=== PATIENT | female | born 1955 | race Caucasian/White ===

== ENCOUNTER 2019-02-24 10:49 | Observation (INO) | payer BC ==
[2019-02-24] MEDS ORDERED: NS 0.9% 1000 ML** 1,000 ML IV ONE (11:05)
--- NOTE | 2019-02-24 11:07 | ED ---
Neurological HPI - HPI Summary HPI Summary: 64 year old F presenting to [facility] accompanied with djhgss-lj-ljj and mother with a chief complaint of sudden onset of neurological symptoms since 09:00 this morning. The patient rates the pain 0/10 in severity. Symptoms aggravated by nothing. Symptoms alleviated by nothing. Patient reports aphasia and slurred speech that she noticed beginning at 09:00 this morning and that have since resolved. Patient complains of bilateral leg heaviness and bilateral leg fatigue , especially when standing. Patient states that symptoms began at 09:00 because after she and her family ate breakfast at 08:30, patient sat on the couch with her nephew. Patient felt sleepy and wanted to take a nap. As she got up to take a nap, she noticed that both her legs felt weak. Patient states that she and her family had plans to leave their house at 09:30 so she believes symptoms started closer to 09:00. Per hnudfs-ws-lui, patient told her brother that her jaw felt thick. Her brother noticed that she couldn't form words well per sister -in-law. Per hncyik-oh-pvs, she told her bbyxkr-us-zre that her legs felt heavy. Her cjdxfk-jk-nmf and mother brought her to the ED. Last known normal was 08:30 this morning. Nurse Billie reports that patient's father's was yesterday. Ledy diehl called at 10:59. Met patient at bedside at 10:59. Patient to CT at 11: 03. Preliminary NIH 0. Met patient in Room 9 at 11:24. She states that she is taking Wellbutrin XL 300 mg once a day, Crestor 10 mg once in the morning which she took today, Seroquel 50 mg once at night, 3 vitamin D tablets, and 1 multivitamin. Patient has hx hypercholesterolemia, anxiety, depression. Patient denies hx HTN. Patient and family are visiting from [place]. Vital signs at triage: HR 122 bpm, BP 186/104, O2 sat 96% Home Medications Medication Instructions Recorded Confirmed Type Bupropion XL* [Wellbutrin XL *] 300 mg PO DAILY 02/24/19 02/24/19 History Cholecalciferol (Vitamin D3) 1,000 unit PO DAILY 02/24/19 02/24/19 History [Vitamin D3] Quetiapine Fumarate [Seroquel 50 50 mg PO BEDTIME 02/24/19 02/24/19 History mg tab] Rosuvastatin Calcium [Crestor] 10 mg PO DAILY 02/24/19 02/24/19 History - History of Current Complaint Chief Complaint: EDNeurologicalDeficit Stated Complaint: FAINT FELLING EARLIER TODAY PER PT Hx Obtained From: Patient, Family/Boardmarker - Psejsm-lp-lpv Onset/Duration: Sudden Onset, Started hours ago - 09:00 today, Still Present Timing: Constant Onset Severity: Mild Current Severity: None Pain Intensity: 0 Pain Scale Used: 0-10 Numeric Character: Motor Weakness - bilateral legs, Impaired Speech Aggravating: Nothing Alleviating: Nothing TPA Considered: Yes - Not given per [facility] - Allergy/Home Medications Allergies/Adverse Reactions: Allergies Allergy/AdvReac Type Severity Reaction Status Date / Time No Known Allergies Allergy Verified 02/24/19 10:57 Home Medications: Home Medications Aspirin/Acetaminophen/Caffeine [Cvs Headache Relief Caplet] 1 each PO DAILY PRN 02/24/19 [History Confirmed 02/24/19] Bupropion XL* [Wellbutrin XL *] 300 mg PO DAILY 02/24/19 [History Confirmed ] Cholecalciferol (Vitamin D3) [Vitamin D3] 1,000 unit PO DAILY 02/24/19 [History Confirmed 02/24/19] Multivitamin with Minerals [One Daily Complete] 1 each PO DAILY 02/24/19 [ History Confirmed 02/24/19] Quetiapine Fumarate [Seroquel 400 MG] 400 mg PO BEDTIME 02/24/19 [History Confirmed 02/24/19] Rosuvastatin Calcium [Crestor] 10 mg PO DAILY 02/24/19 [History Confirmed ] PMH/Surg Hx/FS Hx/Imm Hx Previously Healthy: No Cardiovascular History: Reports: Hx Hypercholesterolemia Denies: Hx Hypertension Sensory History: Reports: Hx Contacts or Glasses Opthamlomology History: Reports: Hx Contacts or Glasses Psychiatric History: Reports: Hx Anxiety, Hx Depression - Surgical History Surgery Procedure, Year, and Place: Patient denies Infectious Disease History: No Infectious Disease History: Denies: Traveled Outside the [place] in Last 30 Days - Family History Known Family History: Positive: Cardiac Disease - Social History Alcohol Use: Rare Hx Substance Use: No Substance Use Type: Reports: None Hx Tobacco Use: No Smoking Status (MU): Never Smoked Tobacco Review of Systems Negative: Fever Eyes: Negative ENT: Negative Cardiovascular: Negative Respiratory: Negative Gastrointestinal: Negative Positive: no symptoms reported Musculoskeletal: Negative Skin: Negative Neurological: Other - aphasia and slurred speech that she noticed beginning at 09:00 this morning and that have since resolved, bilateral leg heaviness and bilateral leg fatigue Psychological: Normal All Other Systems Reviewed And Are Negative: Yes Physical Exam - Summary Physical Exam Summary: Appearance: Well-appearing, no pain distress, well-nourished, hypertensive, speech clear, walked from triage to hallway bed Skin: Warm, color reflects adequate perfusion, dry Head: Normal Head/Face inspection, no facial droop, atraumatic Eyes: Conjunctiva clear, PERRL, EOMI, no nystagmus ENT: Normal inspection Neck: Supple, no nodes, no JVD Respiratory: Lungs clear, normal breath sounds, no respiratory distress Cardio: RRR, No murmur, pulses normal, brisk capillary refill Abdomen: Soft, nontender Bowel sounds: Present Musculoskeletal: Strength Intact/ROM intact, no calf tenderness, no edema. Psychological: Normal Neuro: A&O x3, CN II-XII intact, motor function 5/5, sensation intact, cerebellar normal Preliminary NIH prior to CT: 0 GCS: 15 Triage Information Reviewed: Yes Vital Signs On Initial Exam: Initial Vitals Temp Pulse Resp BP Pulse Ox 98.2 F 122 16 186/104 96 02/24/19 10:52 02/24/19 10:52 02/24/19 10:52 02/24/19 10:52 02/24/19 10:52 Vital Signs Reviewed: Yes - José Miguel Coma Scale Best Eye Response: 4 - Spontaneous Best Motor Response: 6 - Obeys Commands Best Verbal Response: 5 - Oriented Coma Scale Total: 15 Diagnostics - Vital Signs Vital Signs Temp Pulse Resp BP Pulse Ox 02/24/19 10:52 98.2 F 122 16 186/104 96 - Laboratory Result Diagrams: 02/24/19 11:26 02/25/19 11:33 Lab Statement: Any lab studies that have been ordered have been reviewed, and results considered in the medical decision making process. - Radiology CXR Radiology Interpretation Completed By: Radiologist Summary of Radiographic Findings: 1. No evidence for acute intrathoracic disease. ED physician has reviewed this report. - CT Brain CT Interpretation Completed By: Radiologist Summary of CT Findings: 1. Negative unenhanced head CT. ED physician has reviewed this report. - EKG 1123 Cardiac Rate: Tachycardia - 121 BPM EKG Rhythm: Sinus Tachycardia ST Segment: Non-Specific Ectopy: None EKG Comparison: Other - No prior to compare Summary of EKG Findings: An EKG at 11:[address], nml AV/IV CT, nml QTc, and nml axis. No acute changes. No prior to compare. ED MD has reviewed and interpreted this EKG. NIH Scale - NIH Scale Level of Consciousness: Alert/Keenly Responsive Ask Patient the Month and His/Her Age: Both Correct Ask Pt to Open/Close Eyes and [place] Reporter/Release Non-Paretic Hand: Both Correctly Best Gaze (Only Horizontal Eye Movement): Normal Visual Field Testing: No Visual Loss Facial Paresis-Pt to Smile & Close Eyes or Grimace Symmetry: Normal/Symmetrical Motor Function - Right Arm: No Drift-Holds 10 Seconds Motor Function - Left Arm: No Drift-Holds 10 Seconds Motor Function - Right Leg: No Drift-Holds 10 Seconds Motor Function - Left Leg: Drifts LT 10 seconds Limb Ataxia-Must be out of Proportion to Weakness Present: Absent Sensory (Use Pinprick to Test Arms/Legs/Trunk/Face): Normal Best Language (Describe Picture, Name Items): No Aphasia Dysarthria (Read Several Words): Normal Extinction and Inattention: No Abnormality Total Score: 1 NIH Stroke Scale Comment: At time of telestroke at 11:37, 1 for ataxia left leg Re-Evaluation - Re-Evaluation First Eval Change: Unchanged - NIH remains zero. Speech is clear. No new c/o. Second Eval Re-Evaluation Time: 11:35 Comment: in room for initiation of telestroke. Pt's speech remains clear. No new deficit. Alexa DANIELLE does telestroke exam with Dr. Kirkpatrick. Course/Dx - Course Course Of Treatment: 64 yo F visiting from [place] with family, c/o slurred speech and difficulty saying words this am at 0900. Sxs had resolved prior to coming to ED. Pt arrived by private car. Patient medications reviewed this visit. Nurses notes reviewed. High blood pressure noted. CT Brain reveals, per radiologist, 1. Negative unenhanced head CT. An EKG at 11:23 reveals nml AV /IV CT, nml QTc, and nml axis. No acute changes. No prior to compare. CXR reveals, per radiologist, 1. No evidence for acute intrathoracic disease. Test results with no significant abnormalities except for absolute neuts 7.9, absolute lymphs 0.8, creatinine 1.06, BUN/Creatinine ratio 21.7, glucose 250, lactic acid 2.7. In the ED course, the patient was given 1 L IV fluids and aspirin [address] Kirkpatrick, stroke attending at [facility], who is aware of patient's case at 11:14. Spoke with Dr. Garcia, radiology, who called to report the negative CT exam at 11:21. Spoke with Dr. Kirkpatrick who states that patient has left lower extremity ataxia at 11:50. Dr. Kirkpatrick thinks that patient had a TIA and recommends admission to hospitalist to have further imaging and workup, and neurology follow-up tomorrow, 02/25/19. Dr. Kirkpatrick recommends aspirin 325 mg at this time. Spoke with Dr. Barreto, hospitalist, who agrees to admit patient at 11:59. The patient will be admitted to Dr. Barreto, the hospitalist. The patient understands and is agreeable to this admission plan. - Differential Dx Differential Diagnoses Neuro: Positive: Cerebrovascular Accident, Dysrhythmia, Intracranial Bleed, Medication Reaction, Metabolic Abnormality, Migraine - Diagnoses Provider Diagnoses: TIA (transient ischemic attack), Elevated glucose, Elevated lactic acid level, Elevated blood pressure reading without diagnosis of hypertension During the Visit The Following Alert/Code Occurred: Code Diehl - 10:[address] [facility], [facility] - Physician Notifications Discussed Care Of Patient With: Kiara Barreto Time Discussed With Above Provider: 11:59 Instructed by Provider To: Other - Dr. Barreto, hospitalist, agrees to admit patient - Critical Care Time Critical Care Time: 30-74 min - 30 minutes Discharge - Sign-Out/Discharge Documenting (check all that apply): Patient Departure - Admit All imaging exams completed and their final reports reviewed: Yes Patient Received Moderate/Deep Sedation with Procedure: No - Discharge Plan Condition: Stable Disposition: ADMITTED TO [facility] - Billing Disposition and Condition Condition: STABLE Disposition: Admitted to [facility] - Attestation Statements Document Initiated by Scribe: Yes Documenting Scribe: Mar Briggs Provider For Whom Scribe is Documenting (Include Credential): Aniyah Sandhu MD Scribe Attestation: I, Mar Briggs, scribed for Aniyah Sandhu MD on 02/26/19 at 2133. Scribe Documentation Reviewed: Yes Provider Attestation: The documentation as recorded by the scribeMar accurately reflects the service I personally performed and the decisions made by me, Aniyah Sandhu MD Status of Scribe Document: Viewed
[2019-02-24 11:34] LABS: ABS Lymphocytes 0.8 10^3/ul (1.0-4.8); ABS Monocytes 0.3 10^3/ul (0-0.8); ABS Neutrophils 7.9 10^3/ul (1.5-7.7); Eosinophil % 0.4 %; Hematocrit 41 % (35-47); Hemoglobin 13.7 g/dL (12.0-16.0); Lymphocyte % 9.1 %; Mean Corpuscular HGB Conc 33 g/dL (31-36); Mean Corpuscular Hemoglobin 29 pg (27-31); Mean Corpuscular Volume 87 fL (80-97); Mean Platelet Volume 8.2 fL (7.4-10.4); Platelet Count 232 10^3/uL (150-450); Red Blood Count 4.72 10^6 /uL (3.70-4.87); Red Cell Distribution Width 13 % (10-15); White Blood Count 9.1 10^3/uL (3.5-10.8)
[2019-02-24 11:42] LABS: INR 0.97 (0.82-1.09)
[2019-02-24 11:54] LABS: Albumin 4.2 g/dL (3.2-5.2); Albumin/Globulin Ratio 1.6 (1-3); BUN/Creatinine Ratio 21.7 (8-20); Calcium 9.5 mg/dL (8.6-10.3); EGFR African American 63.4 (>60); EGFR Non-African American 52.4 (>60); Globulin 2.6 g/dL (2-4); HDL Cholesterol 61.3 mg/dL; Potassium 4.1 mmol/L (3.5-5.0); Total Bilirubin 0.3 mg/dL (0.2-1.0); Total Protein 6.8 g/dL (6.4-8.9)
[2019-02-24] MEDS ORDERED: Aspirin EC TAB* 325 MG PO ONE (12:10)
[2019-02-24 13:15] LABS: Urine Appearance Clear; Urine Bacteria Absent (Absent); Urine Bilirubin Negative (Negative); Urine Blood Negative (Negative); Urine Color Straw; Urine Glucose 3+(>=500 mg/dL) (Negative); Urine Ketones Negative (Negative); Urine Nitrite Negative (Negative); Urine Protein Negative (Negative); Urine Red Blood Cell Trace(0-2/hpf) (Absent); Urine Specific Gravity 1.012 (1.010-1.030); Urine Urobilinogen Negative (Negative); Urine White Blood Cell Trace(0-5/hpf) (Absent)
[2019-02-24] MEDS: Clopidogrel TAB* 75 MG PO SCH (14:46)
[2019-02-24] MEDS: Iodixanol* (CONTRAST) 320 MG/ML 100 ML SDV IV ONE ×2 (14:47→15:17)
--- NOTE | 2019-02-24 15:40 | HP ---
ADDENDUM: The patient's primary care physician is Dr. Xiomara Breen in [place], [place]. The phone number is [phone]. BRENNON MORATAYA, ROBINA [id number]/[facility] #: [id number] ROSY
[2019-02-24] MEDS: Atorvastatin* 40 MG TAB PO SCH (16:12)
--- NOTE | 2019-02-24 16:21 | HP ---
HOSPITAL MEDICINE HISTORY AND PHYSICAL: DATE OF ADMISSION: 02/24/19 PRIMARY CARE PHYSICIAN: Dr. Xiomara Breen in [place], [place]. The phone number is [phone]. ATTENDING PHYSICIAN: Dr. Kiara Barreto * (dictation provided by Floresita Higgins NP ). CHIEF COMPLAINT: Slurred speech. HISTORY OF PRESENT ILLNESS: Ms. Fox is a 64-year-old female with past medical history of hyperlipidemia and depression, who presents today to the hospital with concern for slurred speech and "feeling off." Ms. Fox states she was in her normal state of health yesterday. 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 She states this morning she was feeling well, but then at 9 a.m. this morning while playing with her nephew, she suddenly began to feel odd. She felt sleepy, which was unusual for her. She then felt that her words were muddied and slurred. She spoke with a family member, who was able to sense a change to her speech as well. She got up to get a glass of water and felt a little wobbly in her legs. She stated that these symptoms lasted 1 hour. These resolved and she decided to continue on with the family plans for the day, which were to go to [facility] for a hike; however, on arrival there, she discussed her previous symptoms with the family and told them that she would prefer just to wait in the car. They grew concerned and they convinced her to come to the emergency room for evaluation. In the emergency room, Ms. Fox states that all of her symptoms are resolved and her NIH stroke scale is 0. She had a CT brain, which showed no acute abnormality. She had a head and neck CTA, which also showed no acute abnormality. She had chest x-ray which showed no acute abnormality. Her labs are unremarkable. PAST MEDICAL HISTORY: 1. Depression. 2. Hyperlipidemia. MEDICATIONS: Outpatient are: 1. Aspirin, acetaminophen, caffeine 1 tab p.o. p.r.n. headache. 2. Seroquel 400 mg p.o. at bedtime. 3. Multivitamin with mineral 1 tab daily. 4. Cholecalciferol 1000 units p.o. daily. 5. Rosuvastatin 10 mg p.o. daily. 6. Wellbutrin XL 300 mg p.o. daily. ALLERGIES: No known drug allergies. FAMILY HISTORY: The patient reports that her mother is alive and well who is actually at the bedside. Father in September with history of dementia with multiple medical problems of unclear causes. SOCIAL HISTORY: The patient denies tobacco or drug use. She states she drinks alcohol very occasionally and states that her mother would be the healthcare proxy. REVIEW OF SYSTEMS: A 14-point review of systems was completed with Ms. Fox and all those not mentioned above were negative. PHYSICAL EXAMINATION GENERAL: Ms. Fox is sitting in the bed. She is in no acute distress. VITAL SIGNS: Temperature 92, pulse rate 124, respiratory rate 22, O2 saturation 97% on room air, blood pressure 162/90. LUNGS: Clear to auscultation bilaterally with no accessory muscle use and good aeration. HEART: S1, S2. No murmur, rub, or gallop. Regular but rapid. ABDOMEN: Soft, nontender with bowel sounds positive x4. EXTREMITIES: No cyanosis, no edema. NEURO: She is alert. She is oriented x3. She moves all extremities equally. There is no facial asymmetry. There is no focal weakness. Her extraocular movements are intact. Her face is symmetrical. Her heel to chacon is normal. Her jlrmdh-jx-bjrj is normal with no ataxia. SKIN: Intact. DIAGNOSTIC STUDIES/LAB DATA: Sodium 138, potassium 4.1, chloride 106, serum bicarbonate 26, BUN 23, creatinine 1.06, glucose 250. Hemoglobin A1c is actually 5.8. Lactic acid 2.7. Troponin 0.00. Triglycerides 128, cholesterol 184, LDL 97, HDL 61. WBC 9.1, hemoglobin 13.7, hematocrit 41, platelet count 232. INR 0.97. Urine shows no evidence of infection. CT brain is read as follows: "Negative for intracranial hemorrhage or CT stigmata of acute or subacute ischemic infarct. Negative unenhanced head CT." Chest x-ray is read as follows: "No evidence for acute intrathoracic disease." Head and neck CT is as follows: "No evidence for hemodynamic significant carotid stenosis based on NASCET criteria and normal variation without pathological finding in the central intracranial arterial vasculature." ASSESSMENT AND PLAN: Ms. Fox is a 64-year-old female who presents to the emergency room today with concern for an episode where she felt unusually sleepy with slurred speech and some wobbly gait, with concern for transient ischemic attack. Our plans are: 1. Transient ischemic attack: The patient's workup thus far is negative with negative CTA, negative head and neck CTA. She will go on for an MRI brain to complete imaging. We will continue to workup possible risk factors for transient ischemic attack with a transthoracic echocardiogram with bubble study and telemetry monitoring. She has already had a lipid profile drawn and will continue with statin. Her hemoglobin A1c is normal and note that her blood pressure is elevated, but I plan to watch this for now, as I would like to maintain a slightly higher blood pressure than normal with goal of SBP 165 to promote cerebral perfusion. But if it remains high, we will need to consider adding antihypertensives. I spoke with Dr. Lewis, who will be seeing her in consultation. He recommends that she have aspirin, which has already had in the ED, but that we add on Plavix. She has neurological checks q.4. 2. Tachycardia: It is unclear why the patient is tachycardic here in the ED today. It is a sinus tachycardia and her heart rate is running about 120s. I think this could be related to stress, but we will need to monitor her closely. She has received 1 L of IV fluid hydration without effect. No indication that she is dehydrated, otherwise. Plan to monitor on telemetry and she will be having an echocardiogram tomorrow. We may consider adding beta britney for concomitant blood pressure control depending on clinical course. 3. Depression. Continue Seroquel and Wellbutrin. 4. Code status is full code. 5. DVT prophylaxis with heparin subcu 6. Disposition: To telemetry floor. TIME SPENT: Approximately 60 minutes was spent on the admission of this patient , more than half the time was spent with the patient at the bedside reviewing the events leading up to this hospitalization, performing the physical examination, and reviewing my plan of care. FLORESITA HIGGINS NP ADDENDUM: The patient's primary care physician is Dr. Xiomara Breen in [place], [place]. The phone number is [phone]. FLORESITA HIGGINS, [employer] VIEWER [id number]/[facility] #: [id number]/[facility] #: [id number] [facility]
[2019-02-24] MEDS ORDERED: QUEtiapine TAB* 100 MG PO SCH (21:00)
[2019-02-24] MEDS: Heparin VIAL(*) 5000 UNITS/ML VIAL (FIVE THOUSAND) SUBCUT SCH (21:38)
--- NOTE | 2019-02-24 23:27 | CONS ---
CONSULTATION REPORT: DATE OF CONSULT: 02/24/19 PATIENT OF: Dr. Floresita Higgins. HISTORY OF PRESENT ILLNESS: A 64-year-old woman with no local physician. She has a history of hyperlipidemia and depression. This morning, she felt tired, which was , she had gotten a good night sleep and just drained. She had a feeling of weakness, but there is no focal numbness or weakness. It just lasted for about an hour and for the second half of this, she had some slurring of speech. She had no word finding difficulties and she made sense. She had a little bit of wobbliness in the legs, but no visual symptoms, no headache. She has passed out in the past and she did not feel like she was going to pass out. She discussed her symptoms with her family and her family made her come to the emergency room. By the time she moved in the ER, she had an NIH stroke scale of 0, and a CT scan of the brain, which was normal as well as normal CTA. She has a history of depression and hyperlipidemia. MEDICATIONS: She is on Wellbutrin 300 mg daily, rosuvastatin 10 mg daily, cholecalciferol 1000 units daily, Seroquel 400 at bedtime, aspirin 1 tab p.r.n. headache but she has not taken that recently. ALLERGIES: She has had no known drug allergies. FAMILY HISTORY: Her mother is alive. Father in September with dementia, multiple medical problems. She was actually in town to commemorate her dad. SOCIAL HISTORY: She does not abuse drugs, alcohol, or tobacco. REVIEW OF SYSTEMS: Negative in all 14 spheres other than HPI. PHYSICAL EXAMINATION: On exam, temperature 97.9, pulse 110, respirations 16, blood pressure 148/64. She is alert and oriented with normal speech and comprehension. Cranial nerves II through XII were intact. Red reflexes intact bilaterally. Motor exam revealed normal tone, strength. She had no nystagmus. Jkqqxm-ox-czrn was intact. Reflexes were 1 and equal. Sensation intact to light touch. Chest: Clear. Cardiovascular: Regular rate and rhythm. Abdomen : Soft with positive bowel sounds. DIAGNOSTIC STUDIES/LAB DATA: Reviewed her CT scan, which was normal. Her CTA showed about 30% stenosis of the right carotid. Head CTA was negative. Labs include normal CBC, INR, PTT. LDL is 97, nonfasting. Hemoglobin A1c was 5.8, lactic acid 2.7, creatinine 1.06. I discussed with Radha that her symptoms are somewhat nonspecific. There was no clear aphasia. There was just a mild slurring of speech a well as feeling of generalized weakness. It is possible that this could be either posterior circulation or cerebellar, but it is not entirely clear and there is no clear focality by history, so it is hard to know for sure whether this was a TIA or not. I discussed that if her MRI scan showed some permanent acute deficit then indeed we have proved that was an ischemic attack and if this MRI scan was abnormal, it would be a stroke rather a TIA. However, the MRI scan shows no acute findings. It would be not entirely clear whether this was a TIA or not. Dr. Gregory is on and will be reviewing her case after she gets her MRI scan and her echo. For now, I will have her on aspirin and Plavix on the assumption that this is a TIA, and I would have her on dual therapy for a month and then just on a single antiplatelet agent after that. Depending on what the final decision is in terms of whether this was a TIA, stroke or other, we will decide whether we treat her more aggressively with statin. Thank you for sharing her case. [id number]/[facility] #: [id number] ROSY
[2019-02-25] MEDS: Heparin VIAL(*) 5000 UNITS/ML VIAL (FIVE THOUSAND) SUBCUT SCH ×2 (05:21→16:19)
[2019-02-25] MEDS: Clopidogrel TAB* 75 MG PO SCH (08:37)
[2019-02-25] MEDS ORDERED: Aspirin 81 mg CHEW TAB* 81 MG TAB.CHEW PO SCH (09:00)
[2019-02-25] MEDS ORDERED: BuPROPion XL* 300 MG TAB.XL PO SCH (09:00)
[2019-02-25] MEDS ORDERED: Metoprolol Tartrate IV* 1 MG/ML 5 ML VIAL IV ONE (11:51)
--- NOTE | 2019-02-25 11:58 | ECHO ---
*[facility]* [place] [address] Fax #: [phone] Transthoracic Echocardiogram Patient: Rylee Height: 61 in / Radha Harvey 154.9 cm : 1955 Weight: 139.7 lb / Study Date: 02/25/2019 63.5 kg Age: 64 BP: 133 / 65 Gender: F BMI/BSA: 26.5 HR: 116 bpm kg/m^2 / 1.67 m^2 *Company Dancer: * Zoya Alicea RDCS *Referring Physician: * Floresita HigginsReading Physician: * Alberto Stafford MD Indications: TIA. History: Depression. Risk factors: Hypertension. Conclusions Summary: 1. Left ventricle: The cavity size is normal. Wall thickness is normal. Systolic function is vigorous. The estimated ejection fraction is 60-65%. Wall motion is normal; there are no regional wall motion abnormalities. 2. Right ventricle: Systolic function is normal. 3. Atrial septum: Bubble study was negative 4. Mitral valve: There is no significant regurgitation. 5. Aortic valve: There is no evidence of stenosis. 6. Tricuspid valve: There is no significant regurgitation. 7. Pericardium, extracardiac: There is no pericardial effusion. 8. Study data: No prior study is available for comparison. Study data: Transthoracic echocardiogram. Procedure: Transthoracic echocardiography was performed. Image quality was good. Intravenous agitated saline , 10 mlswas administered. A bubble study was performed. Complete 2D, spectral Doppler, and color flow Doppler. Location: Procedure room. Patient status: Observation. Patient room number: 431. No prior study is available for comparison. Rhythm: Tachycardia. Findings Left ventricle: The cavity size is normal. Wall thickness is normal. Systolic function is vigorous. The estimated ejection fraction is 60-65%. Wall motion is normal; there are no regional wall motion abnormalities. Left ventricular diastolic function parameters are normal. Right ventricle: Well visualized. The cavity size is normal. Wall thickness is normal. Systolic function is normal. Ventricular septum: Well visualized. Left atrium: Well visualized. The atrium is normal in size. Right atrium: Well visualized. The atrium is normal in size. Atrial septum: Well visualized. No defect or patent foramen ovale is identified. Bubble study was negative Mitral valve: Well visualized. The leaflets are mildly thickened. No echocardiographic evidence for prolapse. There is no evidence of stenosis. There is no significant regurgitation. Aortic valve: Well visualized. The valve is trileaflet. The leaflets are normal thickness. There is no evidence of stenosis. There is no significant regurgitation. Tricuspid valve: Well visualized. The leaflets are normal thickness. There is no evidence of stenosis. There is no significant regurgitation. Pulmonic valve: Well visualized. The leaflets are normal thickness. There is no evidence of stenosis. There is no significant regurgitation. Aorta: The aorta is well visualized. Aortic arch: The aortic arch is appears normal. The aorta is normal. The aortic root is not dilated. Pericardium: There is no pericardial effusion. No evidence of pleural fluid accumulation. Pulmonary arteries: Well visualized. Systemic veins: Well visualized. Inferior vena cava: The vessel is normal in size. The respirophasic diameter changes are in the normal range (>= 50%). Pulmonary veins: Visualization of the pulmonary venous anatomy is incomplete, but a significant abnormality is unlikely. Measurements Left ventricle Value Ref Right atrium continued Value Ref JOSÉ LUIS, LAX (L) 3.0 cm 3.8 - ML dim, ES, A4C (L) 2.4 cm 2.6 - 4.4 5.2 SI dim, ES, A4C 3.5 cm 3.4 - 5.3 ESD, LAX (L) 2.0 cm 2.2 - SI dim/bsa, ES, 2.1 cm/m^2 1.9 - 3.1 3.5 A4C FS, LAX 33 % 27 - 45 PW, ED, LAX 0.9 cm 0.6 - Aortic valve Value Ref 0.9 Peak v, S 1.49 m/sec --------- PW, ED (H) 3.0 cm 0.6 - VTI, S 28.6 cm --------- 0.9 Mean grad, S 7.1 mm Hg --------- PW/ID, ED 62.77 -------- Peak grad, S 8.9 mm Hg --------- E', lat patti, TDI (L) 8.0 cm/sec >=10.0 LVOT/AV, VTI 0.8 -- ------- E/e', lat patti, 11 -------- ratio TDI Mitral valve Value Ref LVOT Value Ref Peak E 0.89 m/sec --------- Peak argentina, S 1.41 m/sec -------- Peak A 1.25 m/sec --------- VTI, S 22.9 cm -------- Decel time 96 ms --------- Peak grad, S 8 mm Hg -------- Peak grad, D 3.2 mm Hg --------- Mean grad, S 4 mm Hg -------- Peak E/A ratio 0.71 --------- Ventricular septum Value Ref Pulmonic valve Value Ref IVS, ED (H) 1.1 cm 0.6 - Peak v, S 0.88 m/sec --------- 0.9 Peak grad, S 3.1 mm Hg --------- Right ventricle Value Ref Aortic root Value Ref JOSÉ LUIS, LAX 2.2 cm -------- Root diam 1.5 cm <3.9 JOSÉ LUIS major ax, A4C (L) 2.3 cm 5.9 - 8.3 Ascending aorta Value Ref AAo AP diam, S 2.7 cm --------- Left atrium Value Ref AAo AP diam/bsa, 1.6 cm/m^2 --------- LA ID 2.4 cm -------- S SI dim ES, LAX 2.4 cm -------- ML dim, A4C 2.8 cm -------- Decending aorta Value Ref SI dim, A4C 3.4 cm -------- Brennan peak argentina 0.58 m/sec --------- Vol, ES, 2-p 21 ml -------- Vol/bsa, ES, 2-p (L) 12 ml/m^2 16 - 34 Right atrium Value Ref SI dim, ES 3.5 cm 3.4 - 5.3 Legend: (L) and (H) jean marie values outside specified reference range. Prepared and electronically signed by Alberto Stafford MD 02/25/2019 11:57
[2019-02-25 12:02] LABS: Calcium 9.8 mg/dL (8.6-10.3); EGFR African American 67.8 (>60); Potassium 4.2 mmol/L (3.5-5.0)
[2019-02-25 13:08] LABS: TSH (Thyroid Stimulating Horm) 2.92 mcIU/mL (0.34-5.60)
[2019-02-25 13:21] LABS: Vitamin D Total 25(OH) 45.1 ng/mL (20-50)
[2019-02-25] MEDS ORDERED: Gadoteridol* (CONTRAST) 279.3 MG/ML 10 ML IV ONE (14:56)
[2019-02-25 16:14] VITALS: BP 158/79
[2019-02-25] MEDS: Atorvastatin* 40 MG TAB PO SCH (16:20)
--- NOTE | 2019-02-25 17:29 | PN ---
Subjective Date of Service: 02/25/19 Length of Stay: 1 Days Neurology is following for acute neurological symptoms that resolved. Interval History: Ms. Radha Mckee is a 64-year-old female from [place] who is here to bury her father's ashes, who developed symptoms of headache, generalized fatigue, and slurring of speech. She finished having breakfast before these symptoms. She felt tired for two hours. She had an associated headache which is not atypical for her. Her BP was elevated. She is aspirin naive. MRI brain showed a nonspecific lesion in the right frontal region consistent with white matter changes seen in chronic small vessel disease. An MRI brain with contrast was obtained and showed no enhancement of that lesion. She has history of migraines and now hypertension. S: the patient is currently asymptomatic. Her speech is back to normal. She denied any focal weakness or paresthesia. Review of Systems: Denied CP, SOB, or palpitations. Objective Active Medications: Aspirin (Aspirin 81 Mg Chew Tab*) 81 mg PO DAILY [facility] Last Admin: 02/25/19 08:37 Dose: 81 mg Atorvastatin Calcium (Lipitor*) 40 mg PO 1700 [facility] Last Admin: 02/25/19 16:20 Dose: 40 mg Bupropion HCl (Bupropion Xl*) 300 mg PO DAILY [facility] Last Admin: 02/25/19 08:37 Dose: 300 mg Clopidogrel Bisulfate (Plavix Tab*) 75 mg PO DAILY [facility] Last Admin: 02/25/19 08:37 Dose: 75 mg Heparin Sodium (Porcine) (Heparin Vial(*)) 5,000 units SUBCUT Q8HR [facility] Last Admin: 02/25/19 16:19 Dose: 5,000 units Metoprolol Tartrate (Lopressor Tab*) 12.5 mg PO Q12HR [facility] Quetiapine Fumarate (Seroquel Tab*) 400 mg PO BEDTIME [facility] Last Admin: 02/24/19 21:34 Dose: 400 mg Vital Signs 02/24/19 02/24/19 02/25/19 22:42 23:38 03:01 Temperature 99.1 F 98 F 97.9 F Pulse Rate 110 121 101 Respiratory 16 14 16 Rate Blood Pressure 167/77 157/72 133/64 (mmHg) O2 Sat by Pulse 96 96 98 Oximetry 02/25/19 02/25/19 02/25/19 07:19 08:00 11:52 Temperature 98.2 F 98.1 F Pulse Rate 101 102 Respiratory 16 16 Rate Blood Pressure 139/78 172/79 (mmHg) O2 Sat by Pulse 97 97 98 Oximetry 02/25/19 15:46 Temperature 97.9 F Pulse Rate 97 Respiratory 16 Rate Blood Pressure 158/79 (mmHg) O2 Sat by Pulse 98 Oximetry Intake and Output Last 24 Hours 02/23/19 02/24/19 02/25/19 02/26/19 06:59 06:59 06:59 06:59 Intake Total 1840 600 Balance 1840 600 Weight 142 lb 4.8 oz 142 lb 4.8 oz Intake: IV Fluids 1000 Oral 840 600 Oxygen Devices in Use Now: None Neurology Exam: General: Well nourished, well developed, and in no acute distress HEENT: Normocephelic/atraumatic, sclera anicteric, mucous membranes moist Neck: Supple Chest: Clear to auscultation bilaterally Cardiovascular: Regular rate and rhythm without murmurs, rubs, gallops Abdomen: Soft, non-tender/non-distended Extremities: No clubbing, cyanosis, or edema Neurological Findings: Awake, alert, and oriented to person, place, and time. Speech: fluent without dysarthria, repetition intact Cranial Nerve: PERRL, EOM intact, VFF, no nystagmus, face symmetric bilaterally , facial sensation intact, hearing intact to finger rub bilaterally, palate elevates symmetrically, tongue midline, SCM and Trapezius s/s. Motor: s/s throughout, proximal and distal extremities x4 tone/bulk normal Sensation: intact to LT/PP bilaterally upper and lower extremities Deep Tendon Reflex: 2+ symmetric in the upper/lower extremities, Babinski - down going Finger to nose, rapid alternating movements intact without tremor, no dysdiadochokinesia Gait: intact with good arm swing and stride Result Diagrams: 02/24/19 11:26 02/25/19 11:33 Microbiology and Other Data: Microbiology 02/24/19 12:53 Urine Culture - Final Urine Assessment/Plan 1. Probable TIA to the posterior circulation: - Other differential diagnosis include complicated migraine or symptomatic hypertensive urgency - Recommend starting aspirin 81 mg daily, atorvastatin 40 mg nightly, and BP mediations to control her newly diagnosed hypertension. 2. White matter lesion in the right frontal lobe- non-specific. Does not meet clinical or radiographic evidence for multiple sclerosis. She has no history of hypercoagulable state. She has no current headache to suspect vasculitis. Migraine headache or chronic hypertension can cause similar abnormalities. Repeat MRI brain with contrast in 6-12 months is recommended. Discussed the above recommendations with the patient. She lives in [place] and will establish care with a provider there. Discussed with Nicole Phan.
[2019-02-25] MEDS ORDERED: Metoprolol Tartrate TAB* 25 MG PO SCH (21:00)
--- NOTE | 2019-02-26 00:43 | DS ---
CC: Dr. Xiomara Breen * DISCHARGE SUMMARY: DATE OF ADMISSION: 02/24/19 DATE OF DISCHARGE: 02/25/19 PRIMARY CARE PROVIDER: Dr. Xiomara Breen in [place], [place]. Phone number is [phone]. ATTENDING FOR THIS ADMISSION: Dr. Kiara Barreto. MY ATTENDING FOR THIS DISCHARGE: Dr. Stiven Elizalde.* (DICTATED BY AKASH ANGEL, ROBINA) CHIEF COMPLAINT: Slurred speech. HOSPITAL COURSE: Please refer to admitting H and P from yesterday, but in short , Ms. Fox is a 64-year-old female patient with a past medical history of hyperlipidemia and depression, who presented to the hospital yesterday with complaints of some generalized weakness and slurred speech. The patient is from out of [facility]. She lives in [place], was visiting [place] with family, when she was attending some hiking activities and was complaining of some generalized fatigue and weakness and had some transient slurred speech. When the patient's symptoms did not resolve, she was brought to the emergency department by her family for evaluation. She was found to have some hypertension as well and there was a concern for transient ischemic attack. The patient had CT and CTA of the head and neck in the emergency department, which were both negative. She also had consultation with Neurology, who agreed with management and continued workup for TIA versus CVA. She was held in observation overnight, had MRI imaging in the morning. MRI imaging showed a potential for some FLAIR signal in T2 and recommended to follow up with contrast imaging. This was discussed with our neurologist, who agreed for followup imaging with contrast, although low for suspicion that this was any acute process. She also had transthoracic echocardiogram with bubble study, which was negative. Her echocardiogram showed good ejection fraction at 60 to 65% with no fixed or reversible defects or wall motion abnormalities. Dr. Gregory did review all of her imaging and agreed that her repeat MRI did not show any acute process and that her symptoms were very nonfocal and agreed that this event may have represented a TIA. However, it is very low on the differential. She did have some persistent tachycardia with some elevated blood pressure. Initially, she responded to some hydration with IV fluids, however, her heart rate did remain in the low 100s and her systolic blood pressure in the 170s. She was effectively treated with beta-britney. She received Lopressor with good effect. Heart rate did come back to normal. Blood pressure was adequate. She was cleared by Neurology this evening after her studies were evaluated. Dr. Gregory recommended aspirin only as opposed to aspirin and Plavix. She was continued on her statin and no changes were made to her home medication regimen. DISCHARGE DIAGNOSES: 1. Transient ischemic attack. 2. Uncontrolled hypertension. 3. Tachycardia. 4. Dehydration. SECONDARY DIAGNOSES: 1. History of depression. 2. Hypercholesteremia. MEDICATIONS FOR DISCHARGE: Include: 1. Excedrin migraine 1 tablet daily as needed. 2. Seroquel 400 mg at bedtime. 3. Multivitamin with mineral 1 tablet p.o. daily. 4. Vitamin D3 of 1000 units p.o. daily. 5. Crestor 10 mg p.o. daily. 6. Bupropion-XL 300 mg p.o. daily. New medications include: 1. Metoprolol tartrate 12.5 mg p.o. q.12 hours. 2. Aspirin 81 mg p.o. daily. REVIEW OF SYSTEMS ON THE DAY OF DISCHARGE: The patient denies any fever, fatigue or chills. No blurred vision. No headache. No dizziness. No further visual disturbances or speech impairments. No chest pain. No shortness of breath. No abdominal pain. No nausea. No vomiting. No arthralgias or myalgias, and no further constitutional complaints. PHYSICAL EXAM: Reveals a very well-appearing woman, in no acute distress. Her vital signs are blood pressure 158/79, heart rate 97, respiratory rate 16, O2 saturation 98% on room air, temperature of 97.9. HEENT: The patient is atraumatic, normocephalic. PERRLA. Nonicteric sclerae. Extraocular movements are intact. Oral mucosa is moist. Tongue is midline. Neck: Supple, nontender. No JVD noted. No carotid bruit auscultated. Cardiovascular: S1, S2 present. Rate and rhythm are regular. No murmurs, gallops or rubs noted. Lungs are clear bilaterally to auscultation with no wheezing, rhonchi or rales. Abdomen is soft, nontender , nondistended. Positive bowel sounds in all 4 quadrants. : Deferred. Musculoskeletal: There is no clubbing, no cyanosis, no edema. She has full range of motion. Gross motor and sensation are intact. Steady gait. Neurologic: Grossly intact with no focal deficits. Psychiatric: She is cooperative and appropriate. DIAGNOSTIC STUDIES/LAB DATA: WBCs 9.1, RBCs 4.72, hemoglobin 13.7, hematocrit 41 , platelets 352. Sodium 140, potassium 4.2, chloride 106, CO2 of 26, BUN 18, creatinine 1.00, GFR 56, glucose 107. Hemoglobin A1c 5.8. Calcium 9.8, total bilirubin 0.30. AST 25, ALT 14, alk phos 95. Total creatine kinase 103, troponin is 0.00. Total protein 6.8. Albumin 4.2 and globulin 2.6. Albumin and globulin ratio 1.6. Triglycerides 128, cholesterol 184, LDL 97, HDL 61.3, vitamin B12 of 586, total vitamin D 45.1, and TSH is 2.92. Urinalysis shows no acute infectious process. Coags: INR is 0.97 and aPTT is 29.0. Imaging: CT of the brain shows negative for intracranial hemorrhage. No stigmata for acute or subacute ischemic infarct. Chest x-ray shows no acute evidence for intrathoracic disease. CTA of the head shows normal variation without any pathologic finding of the central intracranial arterial vasculature. A 12-lead EKG at admission shows sinus tachycardia with no acute ST segment changes. Initial MRI of the brain without contrast shows no restricted diffusion to suggest acute infarct. A single small focus of elevated T2 for signal in the subcortical white matter of the right frontal lobe while nonspecific findings can be seen in association of migraine headache or as a sequela of the previous infection or inflammation. The differential does include small [employer] neoplasm. Differential also includes demyelinating disease or chronic small vessel ischemic change, though these are considered less likely in the absence of an appropriate presentation. Recommended further characterization with postcontrast enhanced MRI of the brain. MRI of the brain with contrast shows the lesion of the right frontal subcortical white matter does not enhance. Recommended followup contrast-enhanced MRI of the brain within 6 to 12 months to document stability. Echocardiogram: Impression: In summary, left ventricular cavity size is normal. Wall thickness is normal. Systolic function is vigorous. Estimated ejection fraction is 60% to 65%. Wall motion is normal. There are no regional wall motion abnormalities. Right ventricular systolic function is normal. Atrial septum, bubble study is negative. Mitral valve, there was no significant regurgitation. Aortic valve, there was no evidence of stenosis. Tricuspid valve, there was no significant regurgitation. Pericardium, there was no significant pericardial effusion. FOLLOWUP: The patient was instructed to follow up with her primary care provider. She has an appointment for this . The patient is driving back to [place]. She will be staying with her brother this evening and [facility], but she will keep her followup appointment with her PCP on . She is instructed to have her blood pressure checked at that time. She has been given a short course of her metoprolol, which is a new medication for her. She has 2- week course that has been set through a local pharmacy here in [place]. She should discuss whether staying on the metoprolol at the current dose is still appropriate for her in the outpatient setting. She should also have continued followup to discuss staying on aspirin 81 mg beyond 30 days, which is the initial recommendation by Dr. Gregory from Neurology. The patient was discharged to home in the care of her brother in stable condition. All questions were answered. The patient stated understanding of discharge instructions, new medications, and followup. TIME SPENT: Approximately 45 minutes on discharge planning. AKASH ANGEL NP [id number]/[id number] #: [id number] ROSY
== END 2019-02-25 17:59 | disposition home or self-care (01) ==
LOC: ED 10:49 → MEDTELE 14:15
PROVIDERS: ADMIT Internal Medicine; ATTEND Internal Medicine
DX: G45.9 Transient cerebral ischemic attack, unspecified (principal); E78.5 Hyperlipidemia, unspecified; F32.9 Major depressive disorder, single episode, unspecified; I10 Essential (primary) hypertension; R00.0 Tachycardia, unspecified; E86.0 Dehydration; E78.00 Pure hypercholesterolemia, unspecified; Z79.82 Long term (current) use of aspirin
CPT/HCPCS: 36415; 70450; 70496; 70498; 70551; 70552; 71045; 80048; 80053; 80061; 81003; 81015; 82306; 82550; 82607; 83036; 83605; 84443; 84484; 85025; 85610; 85730; 86850; 86900; 86901; 87086; 93005; 93306; 96372; 96374; 99285; A9270-GY; A9579; G0378; J1644; J3490; Q9967